=== PATIENT | female | born 1970 | race Hispanic/Latino ===

== ENCOUNTER 2024-10-02 07:12 | Emergency (ER) | payer SELFPAY | END 2024-10-02 07:54 | disposition home or self-care (01) | LOC: NAV ERS 07:12 | DX: K04.7 Periapical abscess without sinus (principal); J06.9 Acute upper respiratory infection, unspecified; R03.0 Elevated blood-pressure reading, without diagnosis of hypertension; K02.9 Dental caries, unspecified; E11.9 Type 2 diabetes mellitus without complications; F17.210 Nicotine dependence, cigarettes, uncomplicated | CPT/HCPCS: 99283 ==

== ENCOUNTER 2025-06-09 09:12 | Emergency (ER) | payer SELFPAY ==
[2025-06-09] MEDS ORDERED: Acetaminophen 325 MG TAB ONE (10:18)
== END 2025-06-09 10:25 | disposition home or self-care (01) ==
LOC: NAV ERS 09:12
DX: U07.1 COVID-19 (principal); H66.92 Otitis media, unspecified, left ear; E11.9 Type 2 diabetes mellitus without complications; F17.210 Nicotine dependence, cigarettes, uncomplicated; Z79.84 Long term (current) use of oral hypoglycemic drugs
CPT/HCPCS: 87400; 87426; 99283